=== PATIENT | female | born 1980 | race Caucasian/White ===

== ENCOUNTER 2022-05-20 15:33 | Outpatient (CLI) | payer BC, SELFPAY ==
[2022-05-20 19:08] LABS: Chloride* 101 mmol/L (96-114)
[2022-05-20 19:09] LABS: Potassium* 3.2 mmol/L (3.6-5.1); Sodium* 138 mmol/L (135-149)
[2022-05-20 19:11] LABS: Carbon Dioxide* 31 mmol/L (20-32); Creatinine* 0.7 mg/dL (0.5-1.5); Estimated Glomerular Filt Rate 110 ml/min
[2022-05-20 19:12] LABS: Blood Urea Nitrogen* 13 mg/dL (5-24); Calcium* 9.1 mg/dL (8.4-10.6); Glucose* 120 mg/dL (60-115)
== END 2022-05-20 15:34 | disposition home or self-care (01) ==
PROVIDERS: PCP Family Medicine; Visit Provider Family Medicine
DX: R53.83 Other fatigue (principal); I10 Essential (primary) hypertension; E66.9 Obesity, unspecified
CPT/HCPCS: 80048; 84443

== ENCOUNTER 2022-10-11 16:33 | Outpatient (CLI) | payer BC, SELFPAY ==
--- NOTE | 2022-10-11 16:45 | CRLHL7_ITS ---
For Patients: As a result of the Cures Act, medical imaging exams and procedure reports are released immediately into your electronic medical record. You may view this report before your referring provider. If you have questions, please contact your health care provider. BILATERAL SCREENING MAMMOGRAM WITH COMPUTER-AIDED DETECTION AND TOMOSYNTHESIS TECHNIQUE: CC and MLO views were obtained. These mammographic images have been obtained using full-field digital technique. These mammographic images were interpreted with the benefit of computer-aided detection. Breast Tomosynthesis was used in this interpretation. COMPARISON FILM: 10/06/21, 07/28/20. FINDINGS: There are scattered areas of fibroglandular density IMPRESSION: There is no radiographic evidence for malignancy. ASSESSMENT: BI-RADS Category 1: Negative RECOMMENDATION: Routine screening mammogram in 1 year. A lay language report of this examination will be provided to the patient. Dorian Lowery M.D. Diagnostic Radiologist [email or web address] BASHIR/adi Transcribed: 1:38 p.jessica joshi/Dictated by: Dorian Lowery MD @ 10/12/2022 10:17:00 AM (Electronically Signed)
== END 2022-10-11 16:34 | disposition home or self-care (01) ==
LOC: MAMMO 16:34
PROVIDERS: PCP Family Medicine; Visit Provider Family Medicine
DX: Z12.31 Encounter for screening mammogram for malignant neoplasm of breast (principal)
CPT/HCPCS: 77063; 77067

== ENCOUNTER 2023-10-26 10:29 | Outpatient (CLI) | payer BC, SELFPAY ==
--- NOTE | 2023-10-26 10:45 | MM_ITS ---
Patient: ALYSON SOE Facility:?[facility] Patient ID:?[id number] Site Patient ID:?[id number] Site :?[id number] Study:?XRay-Breast Bilateral 3D W/CAD-10/26/2023 11:02:20 AM Ordering Physician:Anyi Final Report: BILATERAL SCREENING MAMMOGRAM WITH COMPUTER-AIDED DETECTION AND TOMOSYNTHESIS TECHNIQUE: CC and MLO views were obtained. These mammographic images have been obtained using full-field digital technique. These mammographic images were interpreted with the benefit of computer-aided detection. Breast Tomosynthesis was used in this interpretation. COMPARISON FILM: 10/11/22, 10/06/21, 07/28/20. FINDINGS: There are scattered areas of fibroglandular density. IMPRESSION: There is no radiographic evidence for malignancy. ASSESSMENT: BI-RADS Category 1: Negative RECOMMENDATION: Routine screening mammogram in 1 year. A lay language report of this examination will be provided to the patient. Dorian Lowery M.D. Diagnostic Radiologist [email or web address] BASHIR/sp R& Transcribed: 1:53 p.m. SP/Dictated by: Dorian Lowery MD @ 10/26/2023 12:32:00 PM Signed by:?Dorian Lowery MD @10/26/2023 3:10:54 PM (Electronic Signature)
== END 2023-10-26 10:30 | disposition home or self-care (01) ==
LOC: MAMMO 10:30
PROVIDERS: PCP Family Medicine; Visit Provider Family Medicine
DX: Z12.31 Encounter for screening mammogram for malignant neoplasm of breast (principal)
CPT/HCPCS: 77063; 77067

== ENCOUNTER 2024-01-17 09:18 | Outpatient (CLI) | payer BC, SELFPAY | END 2024-01-17 09:19 | disposition home or self-care (01) | PROVIDERS: PCP Family Medicine; Visit Provider Family Medicine | DX: Z00.00 Encounter for general adult medical examination without abnormal findings (principal); I10 Essential (primary) hypertension; E66.9 Obesity, unspecified | CPT/HCPCS: 80048; 80061 ==

== ENCOUNTER 2025-01-17 10:06 | Outpatient (CLI) | payer BC, SELFPAY ==
[2025-01-21 15:23] LABS: Pap Test Digital Imaging Done
[2025-01-22 06:15] LABS: HPV Source Cervix
== END 2025-01-17 10:07 | disposition home or self-care (01) ==
PROVIDERS: PCP Family Medicine; Visit Provider Family Medicine
DX: I10 Essential (primary) hypertension (principal); E66.9 Obesity, unspecified; Z12.4 Encounter for screening for malignant neoplasm of cervix; Z11.51 Encounter for screening for human papillomavirus (HPV)
CPT/HCPCS: 80048; 80061; 85025; 87624; 87625; 88141; 88142; 88175

== ENCOUNTER 2025-04-24 07:58 | Outpatient (CLI) | payer BC, SELFPAY ==
--- NOTE | 2025-04-24 08:15 | CRLHL7_ITS ---
For Patients: As a result of the Century Cures Act, medical imaging exams and procedure reports are released immediately into your electronic medical record. You may view this report before your referring provider. If you have questions, please contact your health care provider. INDICATION: BILATERAL SCREENING MAMMOGRAM, ASYMPTOMATIC 45 Y/O FEMALE COMPARISON: 10/26/2023, 10/11/2022, 10/06/2021 TECHNIQUE: Digital mammogram in CC and MLO projections including computer-aided detection (CAD) and tomosynthesis. BREAST COMPOSITION: There are scattered areas of fibroglandular density. FINDINGS: No suspicious findings. ASSESSMENT: BI-RADS 1 Negative RECOMMENDATION: Annual screening mammogram. A lay language report of this examination will be provided to the patient. Dictated by: Dorian Lowery MD @ 04/24/2025 09:24:04 (Electronically Signed)
== END 2025-04-24 07:59 | disposition home or self-care (01) ==
LOC: MAMMO 07:58
PROVIDERS: PCP Family Medicine; Visit Provider Family Medicine
DX: Z12.31 Encounter for screening mammogram for malignant neoplasm of breast (principal)
CPT/HCPCS: 77063; 77067